=== PATIENT | female | born 1985 | race Caucasian/White ===

== ENCOUNTER 2019-11-07 06:40 | Emergency (ER) | payer OTHER, SELFPAY ==
--- NOTE | ~2019-11-07 | CT_ITS ---
EXAMINATION: CT abdomen pelvis w con DATE: 11/07/2019 08:24 INDICATION: Abdomen pain. TECHNIQUE: Computed tomography (CT) of the abdomen and pelvis was performed with 100 cc Omnipaque 350 intravenous contrast. The dose-length product was 203.15 mGy-cm. Automated exposure control and iter ative reconstruction technique were employed. COMPARISON: None. FINDINGS: Lung bases unremarkable. Right-sided heart. Right-sided aortic arch. Small hiatal hernia. T here is a left-sided liver with right-sided spleen. The stomach is on the right. Findings compatible with situs inversus. There is right renal cortical scarring. The left kidney is not identified. The a drenal glands are unremarkable. Nonobstructive bowel gas pattern. The bowel is reversed. There is a l ipoma involving the right psoas muscle. No free air or free fluid. No significant lymphadenopathy. IMPRESSION: 1. Situs inversus totalis. 2: No acute abdominal abnormality. 3: Irregular cortical scarring of the right kidney. No hydronephrosis or solid renal mass identified. The left kidney is not identified, possibly developmentally or surgically absent. Reviewed, dictated and finalized at location A. IMPRESSION: 1. Situs inversus totalis. 2: No acute abdominal abnormality. 3: Irregular cortical scarring of the right kidney. No hydronephrosis or solid renal mass identified. The left kidney is not identified, possibly developmenta lly or surgically absent.
[2019-11-07 06:44] VITALS: BP 185/98; PULSE 88; RESP 17; TEMP 37.1; O2SAT 97
--- NOTE | 2019-11-07 06:51 | ED.ABDPAIN ---
HPI - Abdominal Pain General Chief Complaint: Abdominal Pain Stated Complaint: epigastric pain Time Seen by Provider: 11/07/19 06:45 Source: RN notes reviewed History of Present Illness HPI narrative: Patient presents emergency department from home for epigastric abdominal pain. Patient states symptoms began 2 days ago. Pain is located the epigastric region does not radiate. Patient states the pain has never fully resolved but will come and go. Associated with nausea. Patient denies any fevers or chills chest pain shortness of breath diarrhea or any other symptoms. Patient states she has a history of GERD. States pain is progressively worsening. Denies any other symptoms at this time Related Data Allergies Allergy/AdvReac Type Severity Reaction Status Date / Time amoxicillin Allergy Unknown Nausea Verified 11/05/18 14:30 Review of Systems Review of Systems: Narrative: Gen.: Denies fevers or chills ENT: Denies congestion Respiratory: Denies shortness of breath or cough CV: Denies chest pain or palpitations GI: See HPI denies burning, urgency, frequency or hematuria Musculoskeletal: Denies back pain or muscle pain Neuro: Denies numbness, tingling, weakness or focal weakness Skin: Denies rash Except as documented, all other systems reviewed and negative [facility] Past Medical History Medical History (Updated 11/07/19 @ 13:16 by Will Newton DO) Abnormal Papanicolaou smear of cervix with positive human papilloma virus (HPV) test (~02/16/17) referred to Dr Giordano GERD (gastroesophageal reflux disease) Social History Social History (Updated 11/07/19 @ 06:52 by Will Newton DO) Smoking packs per day: 0.5 Smoking cigarettes per day: 10.0 Alcohol intake: never Exam Narrative: Exam Narrative: APPEARANCE: No acute distress, nontoxic, resting in bed HEENT: Normocephalic, atraumatic, OMM RESPIRATORY: No respiratory distress, clear to auscultation bilaterally with no rhonchi wheezing or rales CARDIOVASCULAR: RRR s murmur ABDOMINAL: Soft, nondistended, tender palpation epigastric and left upper quadrant, no tenderness right upper quadrant, right lower quadrant left lower quadrant, no rebound or guarding small ventral hernia and superior abdomen that is soft and reducible but tender to palpation Rectal: No hemorrhoids or fissures, no active bleeding, small bowel soft brown stool that is Hemoccult negative MUSCULOSKELETAl: Moves all extremities. No clubbing, cyanosis or edema. NEURO: Awake and alert. Following commands, speech normal, no focal deficits SKIN:: Warm, dry. Normal Color PSYCHIATRIC: Normal affect/mood Course Course Emergency Course: I did discuss with patient her anemia. She denies have any dark stools or any blood in stool Patient states that they are feeling much better at this time. . Repeat abdominal exam shows the patient's abdomen to be soft with no surgical abdomen present. Discussed with patient results of workup and diagnosis. Discussed need for follow-up with primary care physician, reasons to return to the emergency department in proper use of medication. Patient understands and agrees to current treatment plan Vital Signs Vital signs: Vital Signs Temperature 98.7 F 11/07/19 06:44 Pulse Rate 88 11/07/19 06:44 Respiratory Rate 17 11/07/19 06:44 Blood Pressure 185/98 H 11/07/19 06:44 Pulse Oximetry 97 11/07/19 06:44 Temperature 98.7 F 11/07/19 06:44 Pulse Rate 88 11/07/19 06:44 Respiratory Rate 17 11/07/19 06:44 Blood Pressure 185/98 H 11/07/19 06:44 Pulse Oximetry 97 11/07/19 06:44 MDM - Abdominal Pain Lab Data Result diagrams: 11/07/19 06:54 11/07/19 06:54 Labs: Lab Results 11/07/19 11/07/19 11/07/19 Range/Units 06:54 06:54 07:32 WBC 9.3 (4.5-10.0) K/mm3 RBC 3.97 L (4.2-5.4) M/mm3 Hgb 10.1 L (12.0-15.0) g/dL Hct 32.4 L (37.0-47.0) % MCV 81.6 (80-100) fl MCH 25.4 L (26-34) p
[2019-11-07 07:03] LABS: Basophils Absolute Auto 0.1 K/mm3 (0.0-0.1); Basophils Percent Auto 0.6 % (0.2-1.2); Eosinophils Absolute Auto 0.2 K/mm3 (0-0.3); Eosinophils Percent Auto 2.2 % (0-4.4); Hematocrit 32.4 % (37.0-47.0); Hemoglobin 10.1 g/dL (12.0-15.0); Immature Granulocyte Absolute 0.02 K/mm3 (0.00-0.031); Immature Granulocyte Percent A 0.2 % (0-0.5); Lymphocytes Absolute Auto 3.71 K/mm3 (0.9-3.2); Mean Corpuscular HGB Conc 31.2 g/dl (32-36); Mean Corpuscular Hemoglobin 25.4 pg (26-34); Mean Corpuscular Volume 81.6 fl (80-100); Mean Platelet Volume 9.3 fl (7.4-10.4); Monocytes Absolute Auto 0.8 K/mm3 (0.1-0.6); Monocytes Percent Auto 8.4 % (2.6-8.5); Neutrophils Absolute Auto 4.5 K/mm3 (1.3-6.7); Neutrophils Percent Auto 48.6 % (45.5-73.1); Platelet Count Result 485 k/mm3 (150-375); Red Blood Count 3.97 M/mm3 (4.2-5.4); Red Cell Distribution Width 16.8 % (11.5-14.5); White Blood Count 9.3 K/mm3 (4.5-10.0)
[2019-11-07 07:28] LABS: Alanine Aminotransferase 12 U/L (4-35); Albumin Level 3.8 g/dL (3.5-5.1); Alkaline Phosphatase 90 U/L (38-126); Aspartate Amino Transferase 24 U/L (14-36); Bilirubin,Total 0.1 mg/dL (0.2-1.3); Blood Urea Nitrogen 19 mg/dL (7-17); Calcium 8.3 mg/dL (8.4-10.2); Carbon Dioxide 21 mmol/L (22-30); Chloride 106 mmol/L (98-107); Estimated CRCL calculation 44 ml/min; Estimated Glomerular Filt Rate 51; Glucose 104 mg/dL (65-105); Lipase 209 U/L (23-300); Potassium 4.8 mmol/L (3.4-5.0); Sodium 136 mmol/L (137-145)
[2019-11-07 07:40] LABS: Add Urine Microscopic? YES; Appearance Urine Clear (Clear); Bacteria Urine Trace /hpf; Bilirubin Urine Negative (Negative); Blood Urine Negative (Negative); Color Urine Yellow (Yellow); Glucose Urine UA Negative (Negative); Ketones Urine Negative (Negative); Leukocyte Esterase Ur Negative LEU/UL (Negative); Mucus Urine Rare /lpf; Nitrate Urine Negative (Negative); Protein Urine 2+ mg/dL (Negative); RBC Urine 0-2 /hpf (0-2); Specific Grav Ur 1.018 (1.001-1.035); Squamous Epithelial Cell Urine Moderate /hpf (Few); Urobilinogen Urine Negative mg/dL (<2.0); WBC Urine 0-3 /hpf
[2019-11-07] MEDS: LACTATED RINGERS 1,000 ML 999 ML IV CONT (07:48)
[2019-11-07] MEDS: MORPHINE SULFATE 4 MG/ML INJ IV PUSH (07:48)
--- NOTE | 2019-11-07 08:45 | ECG_ITS ---
Measurements Intervals [place] Rate: 85 P: 261 ME: 155 QRS: 163 QRSD: 71 T: 185 QT: 341 QTc: 407 Interpretive Statements ECTOPIC ATRIAL RHYTHM POOR R WAVE PROGRESSION, CONSIDER ANTEROLATERAL INFARCT HIGH LATERAL INFARCT- AGE INDETERMINATE BORDERLINE T WAVE ABNORMALITY- ANT/INF LEADS BASELINE ARTIFACT- V5-V6 ABNORMAL ECG Electronically Signed On 11-07-2019 10:43:40 CDT by Dilan Ambrose D.O.
[2019-11-07 11:50] VITALS: BP 188/94; PULSE 75; RESP 16; O2SAT 99
[2019-11-07 13:45] VITALS: BP 177/97; PULSE 73; RESP 16; O2SAT 97
== END 2019-11-07 13:50 | disposition home or self-care (01) ==
PROVIDERS: Emergency Provider Emergency Medicine
DX: K43.9 Ventral hernia without obstruction or gangrene (principal); K21.9 Gastro-esophageal reflux disease without esophagitis; F17.210 Nicotine dependence, cigarettes, uncomplicated; Q89.3 Situs inversus; R94.31 Abnormal electrocardiogram [ECG] [EKG]
CPT/HCPCS: 36415; 74177; 80053; 81001; 81025; 83690; 85025; 93005; 96361; 96374; 96375; 99284; A9270; J0131; J2270; J7120; Q9967

== ENCOUNTER 2019-12-28 10:49 | Emergency (ER) | payer OTHER, SELFPAY ==
--- NOTE | ~2019-12-28 | CT_ITS ---
EXAMINATION: CT abdomen pelvis w con DATE: 12/28/2019 12:56 INDICATION: Epigastric abdominal pain. Vomiting. TECHNIQUE: Computed tomography (CT) of the abdomen and pelvis was performed with 100 mL Omnipaque 350 intravenous contrast. Automated exposure control and iterative reconstruction technique were employe d. The dose-length product was 190.49 mGy-cm. COMPARISON: CT abdomen and pelvis 11/07/2019 FINDINGS: Situs inversus is noted. The visualized portions of the lung bases demonstrate mild atelect asis on the left. No pleural effusion. The heart size is normal. No pericardial effusion. There is he terogeneous attenuation of the inferior liver without change. The gallbladder and spleen are normal. There is a 7 mm cystic lesion in the tail of the pancreas with decrease in size from 18 mm, likely a pseudocyst. The adrenal glands are normal. There is multifocal volume loss of right kidney. Left kidn ey is absent. There are dilated loops of jejunum without focal transition point. The appendix is not visualized. There are no pathologically enlarged lymph nodes. There is trace pelvic ascites, likely p hysiologic. Focal fat in the right erector spinae muscle may be an intramuscular lipoma or chronic at formerly [facility]. There is mild lumbar spondylosis. IMPRESSION: 1. Dilated loops of jejunum without focal transition point, likely adynamic ileus. 2. Unchanged heterogeneous attenuation of the inferior liver, likely scarring. 3. Solitary right kidney with unchanged mild atrophy. 4. Situs inversus. 5. 7 mm cystic lesion in the tail of the pancreas with interval improvement, likely a pseudocyst. Reviewed, dictated and finalized at location A. IMPRESSION: 1. Dilated loops of jejunum without focal transition point, likely adynamic ile us. 2. Unchanged heterogeneous attenuation of the inferior liver, likely scarring. 3. Solitary right kidney with unchanged mild atrophy. 4. Situs inversus. 5. 7 mm cystic lesion in the tail of the pancreas with interval improvement, li shellie a pseudocyst.
--- NOTE | ~2019-12-28 | XR_ITS ---
EXAMINATION: XR sm bowel follow through WS EXAM DATE: 12/28/2019 16:34 INDICATION: History of hiatal hernia. Situs inversus. Adynamic ileus, epigastric pain and vomiting. TECHNIQUE: Pharmacy Cashier radiograph was acquired. Small bowel series was performed with water-soluble solut ion. Spot images of the terminal ileum were acquired. The DAP for this procedure was 0.5 Gycm2. Cor relation is made to CT abdomen earlier same date. FINDINGS: Liver is on the left side of the abdomen. The Duodenal sweep, stomach position consistent w ith situs in versus. Ileal and jejunal fold patterns are normal. There is no small bowel wall thicke dandre or mass effect displacing small bowel. There are no intraluminal filling defects identified. T here is no small bowel dilation. Terminal ileum is normal in appearance. Contrast reached the colon between 1.5 in 2 hours, with the cecum located in the left side of the abdomen. IMPRESSION: Situs inverses. Otherwise unremarkable small bowel exam. Reviewed, dictated and finalized at location A.
[2019-12-28 10:55] VITALS: BP 177/100; PULSE 97; RESP 16; TEMP 36.8; O2SAT 100
[2019-12-28 11:37] LABS: Basophils Absolute Auto 0.1 K/mm3 (0.0-0.1); Basophils Percent Auto 0.5 % (0.2-1.2); Eosinophils Absolute Auto 0.1 K/mm3 (0-0.3); Eosinophils Percent Auto 0.8 % (0-4.4); Hematocrit 34.2 % (37.0-47.0); Immature Granulocyte Absolute 0.04 K/mm3 (0.00-0.031); Immature Granulocyte Percent A 0.3 % (0-0.5); Lymphocytes Absolute Auto 3.15 K/mm3 (0.9-3.2); Lymphocytes Percent Auto 26.6 % (18.3-44.2); Mean Corpuscular HGB Conc 32.2 g/dl (32-36); Mean Corpuscular Hemoglobin 25.8 pg (26-34); Mean Corpuscular Volume 80.1 fl (80-100); Monocytes Absolute Auto 0.6 K/mm3 (0.1-0.6); Monocytes Percent Auto 5.1 % (2.6-8.5); Neutrophils Absolute Auto 7.9 K/mm3 (1.3-6.7); Neutrophils Percent Auto 66.7 % (45.5-73.1); Platelet Count Result 436 k/mm3 (150-375); Red Blood Count 4.27 M/mm3 (4.2-5.4); Red Cell Distribution Width 16.9 % (11.5-14.5); White Blood Count 11.9 K/mm3 (4.5-10.0)
[2019-12-28 11:44] LABS: Add Urine Microscopic? YES; Appearance Urine Clear (Clear); Bacteria Urine Trace /hpf; Bilirubin Urine Negative (Negative); Blood Urine Negative (Negative); Color Urine Yellow (Yellow); Glucose Urine UA Negative (Negative); Ketones Urine Negative (Negative); Leukocyte Esterase Ur Negative LEU/UL (Negative); Mucus Urine Rare /lpf; Nitrate Urine Negative (Negative); Protein Urine 3+ mg/dL (Negative); Specific Grav Ur 1.025 (1.001-1.035); Squamous Epithelial Cell Urine Rare /hpf (Few); WBC Urine 0-3 /hpf
--- NOTE | 2019-12-28 11:48 | ED.ABDPAIN ---
HPI - Abdominal Pain General Chief Complaint: Abdominal Pain Stated Complaint: Abd Pain Time Seen by Provider: 12/28/19 11:09 Source: patient Mode of arrival: ambulatory Limitations: no limitations History of Present Illness HPI narrative: This is a 34 year old female that presents to the ER for abdominal pain x 2 days. Reports history of ventral hernia and that she has been having problems with it over the last couple months. Reports she was supposed to have surgery last month, but this was cancelled due to pandemic. Reports worsening pain over the last couple days with nausea and vomiting. Denies fever, chest pain, shortness of breath, diarrhea, or dysuria. Related Data Allergies Allergy/AdvReac Type Severity Reaction Status Date / Time amoxicillin Allergy Unknown Nausea Verified 11/14/19 09:41 Review of Systems Review of Systems: Narrative: CONSTITUTIONAL: Denies fever CARDIOVASCULAR: Denies chest pain RESPIRATORY: Denies dyspnea. GASTROINTESTINAL: Reports abdominal pain, nausea, vomiting. Denies diarrhea. GENITOURINARY: Denies dysuria or hematuria. All systems reviewed & are unremarkable except as noted in HPI and below PMFSH Past Medical History Medical History (Updated 12/28/19 @ 16:55 by Jayna Donahue PA-C) Abnormal Papanicolaou smear of cervix with positive human papilloma virus (HPV) test (~02/16/17) referred to Dr Giordano GERD (gastroesophageal reflux disease) Raynaud disease Unspecified asthma Surgical History Surgical History (Updated 11/14/19 @ 09:46 by Isabell Esparza) S/P wisdom tooth extraction Social History Social History (Updated 11/07/19 @ 06:52 by Will Newton, ) Smoking packs per day: 0.5 Smoking cigarettes per day: 10.0 Alcohol intake: never Exam Narrative: Exam Narrative: GENERAL: Well-appearing, well-nourished, and in no acute distress. HEAD: Normocephalic, atraumatic. EYES: EOMI. CHEST: Clear to auscultation. No respiratory distress. No wheezes rales or rhonchi HEART: Regular rate and rhythm. No murmur heard. Normal peripheral pulses. ABDOMEN: Soft, nondistended, normal active bowel sounds. Mild tenderness to palpation of the epigastrium and LUQ, without guarding. Small supraumbilical ventral hernia EXTREMITIES: Normal range of motion. No edema. SKIN: Warm, dry, no rash. NEURO: No focal deficits. Alert and oriented x3. PSYCH: Normal mood and affect Course Consultations Consultation #1: Spoke with Dr. Guardado about patient and work-up. Reports if small bowel follow-through looks okay that she can go home with strict criteria for return Date: 12/28/19 Time: 16:51 Vital Signs Vital signs: Vital Signs Temperature 98.3 F 12/28/19 10:55 Pulse Rate 97 12/28/19 10:55 Respiratory Rate 16 12/28/19 10:55 Blood Pressure 177/100 H 12/28/19 10:55 Pulse Oximetry 100 12/28/19 10:55 Temperature 98.3 F 12/28/19 10:55 Pulse Rate 71 12/28/19 14:30 Respiratory Rate 18 12/28/19 14:30 Blood Pressure 141/78 H 12/28/19 14:30 Pulse Oximetry 97 12/28/19 14:30 MDM - Abdominal Pain MDM Narrative Medical decision making narrative: Patient presents the emergency department for abdominal pain, nausea and vomiting over the last couple of days. She is afebrile and nontoxic-appearing. Vitals are normal other than elevation in blood pressure. Patient did not think she took her blood pressure medication last night. She was given labetalol with improvement. CBC with mild leukocytosis to 11.9. Normocytic anemia which seems to be around patient's baseline. Metabolic panel also appears to be around patient's baseline. UA without evidence of infection. CT abdomen pelvis shows adynamic ileus. Spoke with Dr. Guardado about patient and work-up. Reports if she is not vomiting and feels okay we could get a small bowel follow-through and if normal she could go home. Small bowel follow-through study is unremarkable. Patient updated on case findings. She has had no fur
[2019-12-28 11:50] LABS: Alanine Aminotransferase 12 U/L (4-35); Albumin Level 3.9 g/dL (3.5-5.1); Alkaline Phosphatase 90 U/L (38-126); Aspartate Amino Transferase 19 U/L (14-36); Bilirubin,Total 0.2 mg/dL (0.2-1.3); Blood Urea Nitrogen 16 mg/dL (7-17); Calcium 8.8 mg/dL (8.4-10.2); Carbon Dioxide 24 mmol/L (22-30); Chloride 103 mmol/L (98-107); Estimated CRCL calculation 47 ml/min; Estimated Glomerular Filt Rate 56; Glucose 106 mg/dL (65-105); Lipase 182 U/L (23-300); Potassium 4.3 mmol/L (3.4-5.0); Sodium 135 mmol/L (137-145)
[2019-12-28] MEDS: MORPHINE SULFATE 4 MG/ML INJ IV PUSH (12:06)
[2019-12-28] MEDS: ONDANSETRON INJ 4 MG/2 ML VIAL IV PUSH (12:06)
[2019-12-28] MEDS: LABETALOL HCL INJ 100 MG/20 ML VIAL 20 MG IV PUSH (12:06)
[2019-12-28] MEDS: SODIUM CHLORIDE 0.9% IV 500 ML 999 ML IV CONT ×2 (12:06→16:15)
[2019-12-28 12:08] VITALS: BP 160/92; PULSE 79; RESP 22; O2SAT 98
[2019-12-28 13:26] VITALS: BP 142/81; PULSE 68; RESP 14; O2SAT 96
[2019-12-28 14:30] VITALS: BP 141/78; PULSE 71; RESP 18; O2SAT 97
[2019-12-28] MEDS: METOCLOPRAMIDE HCL INJ 10 MG/2 ML VIAL IV PUSH (16:15)
[2019-12-28] MEDS: KETOROLAC 30 MG/ML VIAL (*BKC) IV PUSH (16:20)
[2019-12-28 17:03] VITALS: BP 178/98; PULSE 104; RESP 20; O2SAT 97
== END 2019-12-28 17:12 | disposition home or self-care (01) ==
PROVIDERS: Emergency Provider Emergency Medicine; PCP Family Medicine
DX: K21.9 Gastro-esophageal reflux disease without esophagitis (principal); I73.00 Raynaud's syndrome without gangrene; J45.909 Unspecified asthma, uncomplicated
CPT/HCPCS: 36415; 74177; 74250; 80053; 81001; 81025; 83690; 85025; 96361; 96365; 96375; 99284; J0131; J1200; J1885; J2270; J2405; J2765; J7040; Q9967

== ENCOUNTER 2020-01-09 05:37 | Outpatient (CLI) | payer OTHER, SELFPAY ==
[2020-01-09 15:31] LABS: SARS-CoV-2 RNA PCR Negative
== END 2020-01-09 05:38 | disposition home or self-care (01) ==
LOC: ANHCOVIDDT 05:38
PROVIDERS: PCP Family Medicine; Visit Provider Surgery
DX: Z01.818 Encounter for other preprocedural examination (principal); Z11.59 Encounter for screening for other viral diseases
CPT/HCPCS: 87635; C9803; U0003

== ENCOUNTER 2020-01-11 00:30 | Day surgery (SDC) | payer OTHER, SELFPAY ==
[2020-01-06 14:18] VITALS: BMI 22.3
[2020-01-11] MEDS: LACTATED RINGERS 1,000 ML 30 ML IV CONT (06:20)
[2020-01-11 06:28] VITALS: BP 159/80; PULSE 102; RESP 16; TEMP 36.9; O2SAT 100
--- NOTE | 2020-01-11 06:51 | WPDHPUPDATE1 ---
History and Physical Update Update Date/Time: 01/11/20 06:51 History and Physical has been reviewed, including an updated exam of the patient. There are NO changes in the patient's condition. Risks, benefits, and alternatives have been discussed and questions answered. Patient agrees to proceed with procedure.
--- NOTE | 2020-01-11 06:52 | WPDANESEPPF ---
Anes - Initial Pre Proc Eval Procedure: Operation Date: 01/11/20 07:30 Proposed Procedures p Repair Ventral Hernia with Mesh - Dale Guardado MD Date/Time: 01/11/20 06:52 Surgeon: Dale Guardado MD Pre Op Diagnosis: Ventral Hernia Patient Data Age: 34 Gender: F Height: 5 ft 1 in Weight: 50.7 kg Last Vital Signs Temp 36.9 C 01/11/20 06:28 Pulse 102 H 01/11/20 06:28 Resp 16 01/11/20 06:28 BP 159/80 H 01/11/20 06:28 Pulse Ox 100 01/11/20 06:28 Allergies Allergy/AdvReac Type Severity Reaction Status Date / Time amoxicillin AdvReac Mild Nausea Verified 01/11/20 05:59 Home Medications Medication Instructions Recorded Confirmed Type omeprazole 20 mg capsule,delayed 20 mg PO BID #90 cap 08/25/19 01/11/20 Rx release desog-e.estradiol/e.estradiol 0.15 1 tablet PO DAILY #28 tablet 09/13/19 01/11/20 Rx mg-0.02 mg(21)/e.estrad 0.01 mg(5) tablet hydrochlorothiazide 12.5 mg tablet 12.5 mg PO DAILY #30 tablet 11/28/19 01/11/20 Rx ondansetron 4 mg PO Q8H PRN #14 tablet 12/28/19 01/11/20 Rx levalbuterol tartrate 2 inhalation INHALATION Q6H PRN 01/06/20 01/11/20 History Patient hx anesthesia problems: none Family hx anesthesia problems: none PMFSH Past Medical History Medical History Abnormal Papanicolaou smear of cervix with positive human papilloma virus (HPV) test (~02/16/17) referred to Dr Giordano GERD (gastroesophageal reflux disease) History of asthma Klippel-Feil syndrome congenital , 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 Raynaud disease Unspecified asthma Surgical History Surgical History S/P wisdom tooth extraction Family History Family History Father Family history of blood dyscrasia Hypertension Family history of hypercholesterolemia Family history of cardiovascular disease Family history of coronary artery disease Mother Family history of hypercholesterolemia Other Cerebrovascular accident Diabetes mellitus Family history of malignant neoplasm Social History Social History Smoking packs per day: 0.5 Smoking cigarettes per day: 10.0 Alcohol intake: never Anes - Eval Final PreProcedure Day of Procedure 01/11/20 06:52 Patient weight: normal Heart: regular rate and rhythm Lungs: decreased breath sounds Airway: Mallampati scale class 1 Neurological: alert and oriented Last oral intake: >/= 8 hours ASA classification: III Emergent: no Anesthetic plan: proceed Anesthesia type and monitoring: general GIVS and standard monitoring Informed Consent: The patient's anesthetic plan and its attendant risks and benefits were discussed with the patient/family/POA. Questions were solicited and answers provided to the satisfaction of the patient/family/POA.
[2020-01-11] MEDS: ceFAZolin 2 GM/D5W 50 ML 2 GM/50 ML BAG IVPB (07:18)
[2020-01-11 08:12] VITALS: BP 123/69; PULSE 72; RESP 12; O2SAT 94
[2020-01-11 08:30] VITALS: BP 149/92; PULSE 79; RESP 14; O2SAT 96
--- NOTE | 2020-01-11 08:33 | P.OP_ITS ---
Procedure Note - Detailed Date of procedure: 01/11/20 Pre-op diagnosis: Ventral Hernia Ventral hernia Post-op diagnosis: same Procedure performed: Repair primary ventral hernia with 6.6 cm Parietex underlay mesh Description of procedure: The patient was checked in the preoperative holding area. She was then taken back to surgery. The abdomen was prepped and draped. The proposed transversely oriented incision was marked on the skin. Incision was about 3 in cephalad of the umbilicus. Local was infiltrated in the area of the anticipated incision and in the deeper subcutaneous tissues. Incision was made and dissection was carried down to the hernia. I dissected around the hernia sac and then dissected down to the fascia. Additional local was infiltrated into the fascia and the neck of the hernia. The hernia sac was then excised and discarded. The omentum that was protruding through the defect was placed back in the abdomen. I placed a finger in the abdomen and checked the undersurface of the abdominal wall circumferentially. It was clear and there were no additional hernias. I undermined some of the subcutaneous in the cranial and caudal direction above and below the hernia. A 6.6 cm Parietex mesh was chosen. It was placed in the defect and then position symmetrically. Transfascial sutures were then placed to secure the mesh to the anterior abdominal wall. These sutures were placed in the cranial and caudal midline. There were placed in such a fashion as to advance the edges of the hernia defect towards 1 another so there would be no tension on the repair. Once tied down, these sutures had the desired effect. I then placed right and left lateral transfascial sutures. The transfascial sutures were 0 Ethibond. I then closed the defect with [id number] mattress sutures of 0 Ethibond. The rest of the local anesthetic was infiltrated throughout the area of the repair. The wound was closed in layers with interrupted 3 0 Vicryl suture for the deeper subcutaneous. Subcuticular interrupted 4 O Vicryl skin sutures were placed. A running 4 0 Monocryl skin suture was placed. The wound was dressed with Exofin surgical adhesive. The patient was awakened and taken to recovery in good condition. Sponge and needle counts were correct x2. Anesthesia: MAC and local (0.5% Marcaine with Exparel) Surgeon: Dale Guardado MD Electrician'S Helper: Mady STAPLETON Estimated blood loss (mL): 5 Drains: No Packing: No Pathology: none sent Complications: None Condition: stable Disposition: same day Findings: 1.8 cm defect
[2020-01-11 09:00] VITALS: BP 169/92; PULSE 72; RESP 14
== END 2020-01-11 09:18 | disposition home or self-care (01) ==
PROVIDERS: PCP Family Medicine; Visit Provider Surgery
PROC: 0WQF0ZZ Repair Abdominal Wall, Open Approach (ICD-10-PCS; CPT 49560; principal; 2020-01-11 07:30)
DX: K43.9 Ventral hernia without obstruction or gangrene (principal); J45.909 Unspecified asthma, uncomplicated; K21.9 Gastro-esophageal reflux disease without esophagitis; Q76.1 Klippel-Feil syndrome; Q89.3 Situs inversus; I73.00 Raynaud's syndrome without gangrene; F17.210 Nicotine dependence, cigarettes, uncomplicated
CPT/HCPCS: 49560; 49568; C1781; C9290; J0690; J2250; J2704; J3010; J7120

== ENCOUNTER 2022-10-01 14:14 | Outpatient (CLI) | payer BC, SELFPAY ==
[2022-10-01 16:54] LABS: Kit Draw Collected
== END 2022-10-01 14:15 | disposition home or self-care (01) ==
LOC: ANHGOSHLAB 14:16
PROVIDERS: PCP Family Medicine; Visit Provider Family Medicine
DX: K90.0 Celiac disease (principal); R76.0 Raised antibody titer
CPT/HCPCS: 36415

== ENCOUNTER 2022-11-17 07:57 | Emergency (ER) | payer BC, SELFPAY ==
[2022-11-17 08:03] VITALS: BP 150/92; PULSE 92; RESP 18; TEMP 36.5; O2SAT 99
--- NOTE | 2022-11-17 08:24 | ECG_ITS ---
Measurements Intervals [place] Rate: 93 P: -33 [place]: 161 QRS: 155 QRSD: 84 T: 152 QT: 348 QTc: 433 Interpretive Statements ECTOPIC ATRIAL RHYTHM HIGH LATERAL INFARCT, AGE INDETERMINATE BASELINE ARTIFACT- I, II, III, AVL, AVF, V1 ABNORMAL ECG COMPARED TO ECG 11/07/2019 08:59:39 NO SIGNIFICANT CHANGES Electronically Signed On 11-17-2022 8:57:31 CDT by Dilan Ambrose D.O.
--- NOTE | 2022-11-17 08:31 | ED.GENADULT ---
HPI - General Adult General Chief complaint: Unspecified Stated complaint: chills, weakness, shaking Time Seen by Provider: 11/17/22 08:21 History of Present Illness HPI narrative: Patient was at work today when she suddenly started feeling chills, weak, and tremulous. She followed her face with flushing. Had a similar episode about 3 years ago, when she was also told she had high blood pressure, had been placed on BP medications but then everything had normalized and she had been taking off of her medicines. Related Data Allergies Allergy/AdvReac Type Severity Reaction Status Date / Time amoxicillin AdvReac Mild Nausea Verified 10/27/22 13:32 Review of Systems Review of Systems: CONST: Feeling warm/chills. HEENT: Flushing C/V: No chest pain RESP: No cough GI: Reports vague nausea : No dysuria. M/S: No joint pain. 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 Mild intermittent asthma Nicotine dependence Raynaud disease Unspecified asthma Urticaria Ventral hernia ct 2020 Surgical History Surgical History H/O ventral hernia repair 5..20 Repair primary ventral hernia with 6.6 cm Parietex underlay mesh S/P wisdom tooth extraction Family History Family History Father Family history of blood dyscrasia Hypertension Family history of hypercholesterolemia Family history of cardiovascular disease Family history of coronary artery disease Mother Family history of hypercholesterolemia Other Cerebrovascular accident Diabetes mellitus Family history of malignant neoplasm Social History Social History Smoking packs per day: 0.5 Smoking cigarettes per day: 10.0 Years smoked: 20 Smoking pack-years: 10.00 Smoking status: Former smoker Tobacco type: cigarettes Smoking end date: 01/09/21 Alcohol intake: current Substance use type: does not use Lack of Transportation: No Lack of Food: Never True Current Housing: I Have Housing Concerned About Future Housing: No Difficulty Paying Gas/Electric Bills: No Difficulty Paying for Meds: No Currently Unemployed: No Education: Associate Degree Difficulty w/ Childcare or Family Care: No Living arrangements: with family Gender identity (if verbalized by the patient): Female Sexual Orientation (if Verbalized by the Patient): Straight or Heterosexual Exam Narrative: EXAMINATION OF ORGAN SYSTEMS/BODY AREAS: Constitutional: Vital signs per nursing GENERAL:[No acute distress, non-toxic appearing.] HEAD: Normal with no signs of head trauma. EYES: EOMI, conjunctiva normal ENT: Face/ears somewhat red which per her partner is not normal LUNGS: Nonlabored breathing. HEART: [Regular rate and rhythm] ABD: [Soft], [nontender to palpation] EXT: Normal range of motion SKIN: [No rashes or lesions.] NEURO: [Alert and oriented x 3. No gross focal sensory or strength deficits.] PSYCH: Normal affect Course Vital Signs Vital signs: Vital Signs Temperature 97.7 F 11/17/22 08:03 Pulse Rate 92 11/17/22 08:03 Respiratory Rate 18 11/17/22 08:03 Blood Pressure 150/92 H 11/17/22 08:03 Pulse Oximetry 99 11/17/22 08:03 Oxygen Delivery Room Air 11/17/22 08:03 Temperature 97.7 F 11/17/22 08:03 Pulse Rate 92 11/17/22 08:03 Respiratory Rate 18 11/17/22 08:03
[2022-11-17 08:34] VITALS: BP 124/108
[2022-11-17 09:00] LABS: Basophils Percent Auto 0.2 % (0.2-1.2); Eosinophils Absolute Auto 0.1 K/mm3 (0-0.3); Eosinophils Percent Auto 0.8 % (0-4.4); Hematocrit 38.2 % (37.0-47.0); Hemoglobin 12.9 g/dL (12.0-15.0); Immature Granulocyte Absolute 0.04 K/mm3 (0.00-0.031); Immature Granulocyte Percent A 0.3 % (0-0.5); Lymphocytes Percent Auto 20.5 % (18.3-44.2); Mean Corpuscular HGB Conc 33.8 g/dl (32-36); Mean Corpuscular Hemoglobin 29.1 pg (26-34); Mean Platelet Volume 9.4 fl (7.4-10.4); Monocytes Absolute Auto 0.8 K/mm3 (0.1-0.6); Monocytes Percent Auto 6.4 % (2.6-8.5); Neutrophils Absolute Auto 8.4 K/mm3 (1.3-6.7); Neutrophils Percent Auto 71.8 % (45.5-73.1); Platelet Count Result 365 k/mm3 (150-375); Red Blood Count 4.44 M/mm3 (4.2-5.4); Red Cell Distribution Width 13.4 % (11.5-14.5); White Blood Count 11.7 K/mm3 (4.5-10.0)
[2022-11-17 09:01] VITALS: BP 129/85
[2022-11-17 09:13] LABS: Alanine Aminotransferase 21 U/L (6-35); Albumin Level 4.5 g/dL (3.5-5.1); Alkaline Phosphatase 64 U/L (38-126); Anion Gap 11 mmol/L (8-16); Aspartate Amino Transferase 27 U/L (14-36); Bilirubin,Total 0.5 mg/dL (0.2-1.3); Blood Urea Nitrogen 20 mg/dL (7-17); Carbon Dioxide 19 mmol/L (22-30); Chloride 106 mmol/L (98-107); Estimated CRCL calculation 42 ml/min; Estimated Glomerular Filt Rate 42; Glucose 142 mg/dL (65-110); Potassium 4.3 mmol/L (3.4-5.0); Sodium 136 mmol/L (137-145)
== END 2022-11-17 11:07 | disposition home or self-care (01) ==
PROVIDERS: Emergency Provider Emergency Medicine; PCP Family Medicine
DX: R53.1 Weakness (principal); K21.9 Gastro-esophageal reflux disease without esophagitis; J45.909 Unspecified asthma, uncomplicated; I73.00 Raynaud's syndrome without gangrene
CPT/HCPCS: 36415; 80053; 84443; 85025; 93005; 99283

== ENCOUNTER 2023-02-16 13:42 | Outpatient (CLI) | payer BC, SELFPAY ==
--- NOTE | ~2023-02-16 | US_ITS ---
EXAMINATION: US renal BI DATE: 02/16/2023 13:59 INDICATION: N18.31 - Chronic kidney disease, stage 3a TECHNIQUE: Multiple grayscale and Doppler ultrasound images of the kidneys were obtained. COMPARISON: CT abdomen and pelvis 12/28/2019. FINDINGS: The right kidney measures 11.4 x 4.2 x 5.5 cm. The left kidney is not visualized The right kidney dem onstrates normal parenchymal echogenicity. There is mild right. The bladder is normal. A single urete ral jet is noted. IMPRESSION: Renal cortical atrophy, medical renal disease, and mild hydronephrosis on the right. Absent left kidn ey. Reviewed, dictated and finalized at location K. IMPRESSION: Renal cortical atrophy, medical renal disease, and mild hydronephrosis on the r ight. Absent left kidney.
== END 2023-02-16 13:43 ==
LOC: GOSHIMG 13:44
PROVIDERS: PCP Family Medicine; Visit Provider Internal Medicine Nephrology
DX: N18.31 Chronic kidney disease, stage 3a (principal); N26.1 Atrophy of kidney (terminal); N13.30 Unspecified hydronephrosis; Z90.5 Acquired absence of kidney
CPT/HCPCS: 76775

== ENCOUNTER 2023-02-16 13:57 | Outpatient (CLI) | payer BC, SELFPAY ==
[2023-02-16 15:15] LABS: Kit Draw Collected
== END 2023-02-16 13:58 | disposition home or self-care (01) ==
LOC: ANHGOSHLAB 14:00
PROVIDERS: PCP Family Medicine; Visit Provider Internal Medicine Nephrology
DX: N25.81 Secondary hyperparathyroidism of renal origin (principal); N18.31 Chronic kidney disease, stage 3a; E55.9 Vitamin D deficiency, unspecified
CPT/HCPCS: 36415

== ENCOUNTER 2023-07-18 07:46 | Outpatient (CLI) | payer BC, SELFPAY ==
[2023-07-18 08:49] LABS: Alanine Aminotransferase 16 U/L (6-35); Albumin Level 4.7 g/dL (3.5-5.1); Alkaline Phosphatase 65 U/L (38-126); Anion Gap 11 mmol/L (8-16); Aspartate Amino Transferase 24 U/L (14-36); Bilirubin,Total 0.7 mg/dL (0.2-1.3); Blood Urea Nitrogen 21 mg/dL (7-17); Calcium 9.6 mg/dL (8.4-10.2); Carbon Dioxide 23 mmol/L (22-30); Chloride 105 mmol/L (98-107); Estimated Glomerular Filt Rate > 60; Glucose 114 mg/dL (65-110); Sodium 139 mmol/L (137-145)
[2023-07-18 09:08] LABS: Hematocrit 42.5 % (37.0-47.0); Hemoglobin 14.1 g/dL (12.0-15.0); Mean Corpuscular HGB Conc 33.2 g/dl (32-36); Mean Corpuscular Hemoglobin 29.7 pg (26-34); Mean Corpuscular Volume 89.7 fl (80-100); Mean Platelet Volume 9.9 fl (7.4-10.4); Platelet Count Result 345 k/mm3 (150-375); Red Blood Count 4.74 M/mm3 (4.2-5.4); Red Cell Distribution Width 13.6 % (11.5-14.5)
[2023-07-18 09:55] LABS: Folic Acid 3.9 ng/mL (2.76->20)
[2023-07-18 10:11] LABS: Vitamin D 25 Hydroxy 54.3 ng/mL
[2023-07-18 12:28] LABS: Iron 99 ug/dL (37-170); Percent Iron Saturation 30 % (20-50)
[2023-07-21 03:07] LABS: Tissue Transglutaminase IgA Ab 1.3 U/mL (<15.0)
[2023-07-22 22:19] LABS: Vitamin A 66 mcg/dL (38-98)
== END 2023-07-18 07:47 | disposition home or self-care (01) ==
LOC: ANHLAB 07:48
PROVIDERS: PCP Family Medicine; Visit Provider Nurse Practitioner Family
DX: K90.0 Celiac disease (principal); K52.9 Noninfective gastroenteritis and colitis, unspecified
CPT/HCPCS: 36415; 80053; 82306; 82607; 82728; 82746; 83540; 83550; 84590; 85027; 86364

== ENCOUNTER 2023-07-27 00:51 | Day surgery (SDC) | payer BC, SELFPAY ==
[2023-07-08 14:41] VITALS: BMI 27.5
--- NOTE | 2023-07-22 09:36 | SUR.PREOP ---
Patient called regarding upcoming procedure. Message left on patient's voicemail regarding preop instructions, appointment times, and procedure prep.
[2023-07-27 09:22] VITALS: BP 125/82; PULSE 74; RESP 18; TEMP 36.8; O2SAT 100
[2023-07-27] MEDS: LACTATED RINGERS 1,000 ML 150 ML IV CONT (09:41)
--- NOTE | 2023-07-27 09:45 | WPDANESEPPF ---
Anes - Initial Pre Proc Eval Procedure: Operation Date: 07/27/23 10:45 Proposed Procedures p Esophagogastroduodenoscopy & Colonoscopy - Kamlesh Youssef MD Date/Time: 07/27/23 09:45 Surgeon: Kamlesh Youssef MD Pre Op Diagnosis: GERD,Celiac disease, Patient Data Age: 37 Gender: F Height: 1.55 m Weight: 64.8 kg Last Vital Signs Temp 98.2 F 07/27/23 09:22 Pulse 74 07/27/23 09:22 Resp 18 07/27/23 09:22 BP 125/82 07/27/23 09:22 Pulse Ox 100 07/27/23 09:22 O2 Del Method Room Air 07/27/23 09:22 Allergies Allergy/AdvReac Type Severity Reaction Status Date / Time amoxicillin AdvReac Mild Nausea Verified 07/27/23 09:22 Home Medications Medication Instructions Recorded Confirmed Type montelukast 10 mg tablet 10 mg PO QHS #90 tabs 04/30/22 07/08/23 Rx omeprazole 40 mg capsule,delayed 40 mg PO DAILY #90 caps 10/01/22 07/08/23 Rx release bupropion HCl 150 mg 24 hr tablet, See Rx Instructions .Route 04/17/23 07/08/23 Rx extended release .COMPLEX #90 tabs fluticasone furoate 200 1 inh inhalation Q24H #60 ea 07/06/23 07/08/23 Rx mcg-vilanterol 25 mcg/dose inhalation powder (Breo Ellipta) Lactobacillus 1 cap PO DAILY 07/08/23 07/08/23 History acidophilus-Bifidobac.animalis 2.5 billion cell capsule (Daily Probiotic) albuterol sulfate 90 mcg/actuation 2 inh inhalation Q4H PRN SOB 07/08/23 07/08/23 History aerosol inhaler (Ventolin HFA) ascorbic acid (vitamin C) 1,000 mg 1 g PO DAILY 07/08/23 07/08/23 History capsule cetirizine 10 mg tablet (Zyrtec) 10 mg PO DAILY 07/08/23 07/08/23 History cholecalciferol (vitamin D3) 25 25 mcg PO DAILY 07/08/23 07/08/23 History mcg (1,000 unit) capsule famotidine 20 mg tablet (Pepcid) 20 mg PO HS 07/08/23 07/08/23 History omega 0-iqp-eeg-fish oil 1,200 mg 1 cap PO DAILY 07/08/23 07/08/23 History (144 mg-216 mg) capsule (Fish Oil) sertraline 50 mg tablet 50 mg PO DAILY 07/08/23 07/08/23 History Patient hx anesthesia problems: none Family hx anesthesia problems: none Results Review: All pre-operative results and documents have been reviewed as part of the pre-operative evaluation. 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 Mild intermittent asthma Nicotine dependence Raynaud disease Unspecified asthma Urticaria Ventral hernia ct 2019 Surgical History Surgical History H/O ventral hernia repair 5.13.20 Repair primary ventral hernia with 6.6 cm Parietex underlay mesh S/P wisdom tooth extraction Family History Family History (Updated 06/17/23 @ 13:04 by LORI Hodgson) Father Family history of blood dyscrasia Hypertension Family history of hypercholesterolemia Family history of cardiovascular disease Family history of coronary artery disease Mother Family history of hypercholesterolemia Lung cancer Sibling No problems noted. Other Cerebrovascular accident Diabetes mellitus Family history of malignant neoplasm Social History Social History (Updated 06/17/23 @ 13:05 by LORI Hodgson) Smoking packs per day: 0.5 Smoking cigarettes per day: 10.0 Years smoked: 20 Smoking pack-years: 10.00 Smoking status: Former smoker Tobacco type: cigarettes Second hand tobacco smoke exposure: Yes Smoking end date: 01/09/21 Alcohol intake: current Drinks per week: 14 Substance use: current Substance use type: marijuana Lack of Tra
--- NOTE | 2023-07-27 10:13 | PM.HPGS ---
History of Present Illness History of Present Illness Consent: Risks, benefits, and alternatives have been discussed and questions answered. Patient agrees to proceed with procedure. Chief complaint: GERD,Celiac disease, Narrative: Corrina Eldridge is a 37 year old female with loose stools and bloating for over 10 years, diagnosed several months ago with celiac disease after abnormal serology (reviewed), she is on gluten free diet- she is trying her best with some improvement. Never had scopes, also gerd on omeprazole and pepcid. Review of Systems Constitutional: Constitutional: Denies headache(s) and Denies weakness Eyes: Eyes: Denies blurry vision ENT: Reports Normal hearing present, Denies headache(s) and Denies neck pain Cardiovascular: Cardiovascular: Denies chest pain and Denies dyspnea Respiratory: Respiratory: Denies dyspnea Gastrointestinal: Gastrointestinal: Reports no additional gastrointestinal complaints Genitourinary: Genitourinary: Denies dysuria Musculoskeletal: Musculoskeletal: Denies neck pain Integumentary/Breasts: Skin/Breast: Denies dry skin Neurologic: Reports Normal hearing present, Denies headache(s) and Denies weakness Psychiatric: Psychiatric: Denies anxiety Endocrine: Endocrine: Denies change in body appearance Hematologic/Lymphatic: Hematologic/Lymphatic: Denies easy bleeding Allergic/Immunologic: Allergic/Immunologic: Denies urticaria PMF Past Medical History Medical History (Updated 06/17/23 @ 13:54 by Mari Negron APN-Joceline) Abnormal Papanicolaou smear of cervix with positive human papilloma virus (HPV) test (~02/16/17) referred to Dr Giordano BMI 27.0-27.9,adult Chronic diarrhea Encounter for other specified surgical aftercare GERD (gastroesophageal reflux disease) Herpes simplex History of asthma Klippel-Feil syndrome congenital , 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 Mild intermittent asthma Nicotine dependence Raynaud disease Unspecified asthma Urticaria Ventral hernia ct 2019 Surgical History Surgical History H/O ventral hernia repair 01.11.20 Repair primary ventral hernia with 6.6 cm Parietex underlay mesh S/P wisdom tooth extraction Family History Family History (Updated 06/17/23 @ 13:04 by LORI Hodgson) Father Family history of blood dyscrasia Hypertension Family history of hypercholesterolemia Family history of cardiovascular disease Family history of coronary artery disease Mother Family history of hypercholesterolemia Lung cancer Sibling No problems noted. Other Cerebrovascular accident Diabetes mellitus Family history of malignant neoplasm Social History Social History (Updated 06/17/23 @ 13:05 by Julia Rasmussen [facility]) Smoking packs per day: 0.5 Smoking cigarettes per day: 10.0 Years smoked: 20 Smoking pack-years: 10.00 Smoking status: Former smoker Tobacco type: cigarettes Second hand tobacco smoke exposure: Yes Smoking end date: 01/09/21 Alcohol intake: current Drinks per week: 14 Substance use: current Substance use type: marijuana Lack of Transportation: No Lack of Food: Never True Current Housing: I Have Housing Concerned About Future Housing: No Difficulty Paying Gas/Electric Bills: No Difficulty Paying for Meds: No Currently Unemployed: No Education: Associate Degree Difficulty w/ Childcare or Family Care: No Living arrangements: with family Occupation/Education: occupation Additional occupation/education comments: hospital cook Gender identity (if verbalized by the patient): Female Sexual Orientation (if Verbalized by the Patient): Straight or Heterosexual Spiritual care concerns: No Meds Home Medications and Allergies Home Medications Medication Instructions Recorded Confirmed Type montelukast 10 mg tablet 10 mg PO QHS #90 ta
--- NOTE | 2023-07-27 10:33 | SUR.OPER ---
EGD ended at 1028. Colonoscopy began at 1033.
[2023-07-27 10:48] VITALS: BP 138/76; PULSE 61; RESP 17; O2SAT 100
[2023-07-27 10:58] VITALS: BP 144/67; PULSE 66; RESP 16; O2SAT 100
[2023-07-27 11:08] VITALS: BP 157/78; PULSE 65; RESP 22; O2SAT 100
== END 2023-07-27 11:12 | disposition home or self-care (01) ==
PROVIDERS: PCP Family Medicine; Visit Provider Internal Medicine Gastroenterology
PROC: 0DJ08ZZ Inspection of Upper Intestinal Tract, Via Natural or Artificial Opening Endoscopic (ICD-10-PCS; CPT 43235; principal; 2023-07-27 10:45)
DX: Z12.11 Encounter for screening for malignant neoplasm of colon (principal); D12.0 Benign neoplasm of cecum; D12.5 Benign neoplasm of sigmoid colon; K90.0 Celiac disease; K52.9 Noninfective gastroenteritis and colitis, unspecified; K21.9 Gastro-esophageal reflux disease without esophagitis; K44.9 Diaphragmatic hernia without obstruction or gangrene; J45.909 Unspecified asthma, uncomplicated; F10.90 Alcohol use, unspecified, uncomplicated; Z87.891 Personal history of nicotine dependence; F12.90 Cannabis use, unspecified, uncomplicated; Z79.51 Long term (current) use of inhaled steroids; Z79.899 Other long term (current) drug therapy
CPT/HCPCS: 43239; 45385; 45380; 88305; J2001; J2704; J7120

== ENCOUNTER 2024-10-07 11:45 | Outpatient (CLI) | payer BC, SELFPAY ==
--- OUTSIDE RECORDS SUMMARY | 2024-10-07 12:09 | XMS_ITS | Referral Summary ---
Author Organization [facility] Address [address] [place] [address] Care Team Providers Care Clerical Assistant Name Role Phone Geraldo Urbina MD Primary Care Provider Source Comments [facility],non-owned Affiliates and Associated Physician Practices is amultiple site organization consisting of ambulatory clinics and hospital sitesin [place], [place], [place] and [place]. This disclosure is being madepursuant to the Care Everywhere program and may not contain all information available regarding this patient. Last updated 18.[employer] [facility] Allergies No known active allergies Medications * Be aware that medications may not be up to date on this document. Alwaysverify current medications with the patient. Medication Sig Dispensed Refills Start Date End Date Status albuterol HFA (PROVENTIL;VENTOLIN; PROAIR) 108 (90 Base) MCG/ACT inhaler Inhale 2 puffs by mouth every 6 hours as needed Active OtherIndications:ora l contraception Reasons: oral contraception Active Social History Tobacco Use Types Packs/Day Years Used Date Smoking Tobacco: Never Assessed Sex and Gender Information Value Date Recorded Sex Assigned at Not on file Gender Identity Not on file Sexual Orientation Not on file Last Filed Vital Signs Vital Sign Reading Time Taken Comments Blood Pressure 190/100 10/12/2019 7:26 PM SHIRT HEMMER Pulse 84 10/12/2019 7:26 PM SHIRT HEMMER Temperature 36.8 C (98.2 F) 10/12/2019 7:26 PM SHIRT HEMMER Respiratory Rate 15 10/12/2019 7:26 PM SHIRT HEMMER Oxygen Saturation 100% 10/12/2019 7:26 PM SHIRT HEMMER Inhaled Oxygen Concentration - - Weight 53.5 kg (118 lb) 10/12/2019 7:26 PM SHIRT HEMMER Height 154.9 cm (5' 1 ) 10/12/2019 7:26 PM SHIRT HEMMER Body Mass Index 22.3 10/12/2019 7:26 PM SHIRT HEMMER Plan of Treatment Not on file Care Teams Clerical Assistant Relationship Specialty Start Date End Date Geraldo Urbina MD [address] [place] [address] PCP - General Family Medicine 10/12/19
--- OUTSIDE RECORDS SUMMARY | 2024-10-07 12:09 | XMS_ITS | Clinical Summary ---
Author Organization [facility] Address [address] [place] [address] Care Team Providers Care Senior Training Specialist Name Role Phone Unavailable Primary Care Provider Unavailabl e Social History Tobacco Use Types Packs/Day Years Used Date Smoking Tobacco: Never Assessed Comments Unknown Sex and Gender Information Value Date Recorded Sex Assigned at Not on file Legal Sex Female 1:33 PM CDT Gender Identity Not on file Sexual Orientation Not on file Plan of Treatment Health Maintenance Due Date Last Done Comments Cervical Cancer Screening Pa p Smear (Age 30 to 64) Every 3 Years 1983 Annual Physical 11/18/1986 Hepatitis C 11/18/2001 DTaP, Tdap and Td Vaccines ( 1 - Tdap) 11/18/2002 Hepatitis B Vaccines (1 of 3 - 19+ 3-dose series) 11/18/2002 Cervical Cancer Screening Pa p with HPV Testing (Age 30 to 64) Every 5 Years 11/18/2013 Cervical Cancer Screening with HPV 11/18/2013 Mammogram Screening 2023 COVID-19 Vaccine ( - 2023-2 5 season) 2024 Influenza Adult (#1) 2024 HPV Vaccines Aged Out No longer eligi ble based on patient's age to complete this topic Meningococcal B Vaccine Aged Out No l onger eligible based on patient's age to complete this topic Meningococcal Vaccine Aged Out No quintin elza eligible based on patient's age to complete this topic Pneumococcal Vaccine: Pediat rics (0 to 5 Years) and At-Risk Patients (6 to 64 Years) Aged Out No longer eligible b ased on patient's age to complete this topic RSV Immunizations Under 20 Months Aged Out No longer eligible based on patient's age to complete this topic
--- OUTSIDE RECORDS SUMMARY | 2024-10-07 12:09 | XMS_ITS | Patient Health Record ---
Author Organization [facility] Address [address] [place] [address] Care Team Providers Care Photo Lab Specialist Name Role Phone Geraldo Urbina Primary Care Provider Lázaro RODRIGUEZ, PAVinicioC, ZANA Unavailable [phone] REASON FOR REFERRAL No Information MEDICATIONS Medication SIG (Take, Route, Frequency, Duration) Notes Start Date End Date Status Kariva 0.15-0.02/0.01 MG (18/01) as directed Orally Active Allergy PRN Active Levalbuterol Tartrate 45 MCG/ACT 1 puff as needed Inhalation every 4 hrs Active Omeprazole 40 MG 1 capsule Orally Onc e a day for 30 day(s) 05/13/2019 Active Ranitidine HCl 150 MG 1 capsule Orally T wice a day for 30 day(s) 05/13/2019 Active Omeprazole 40 MG 1 capsule 30 minutes before morning meal Orally Once a day for 90 days 07/11/2019 Active Pantoprazole Sodium 40 MG 1 tablet Orall y Once a day for 90 days 05/10/2019 Active Ranitidine HCl 300 MG 1 capsule at bedti me Orally Once a day at bedtime for 30 day(s) 05/09/2019 Active Pantoprazole Sodium 40 MG 1 tablet Orall y Once a day for 30 day(s) 05/09/2019 Active SOCIAL HISTORY Tobacco Use: Social History Observation Description Date Details (start date - stop date) Former Smoker NA - NA Sex Assigned At : Social History Observation Description Sex Assigned At Unknown Tobacco Use/Smoking Question Answer Notes Are you a former smoker How long has it been since y ou last smoked? 5-10 years Additional Findings: Tobacco Non-User Ex -moderate cigarette smoker (10-19/day) PROBLEMS Problem Type ICD Code Onset Dates Problem Status W/U Status Risk SNOMED Code Notes Problem Gastro-esophagea l reflux disease without esophagitis (K21.9) Active confirmed Gastro-esophage al reflux disease without esophagitis (959699458) Problem Dysphagia, unspecified (R13.10) Active confirmed Dysphagia (10141914) PLAN OF TREATMENT No Information Insurance Providers Payer Name Payer Address Payer Phone Subscriber Number Group Number Insured Name Patient Relationship to Insured Coverage Start Date Coverage End Date [employer] [address] [place] [address] [id number] Corrina Eldridge Self - patient is the insured MEDICAL (GENERAL) HISTORY Medical History History ICD Code GERD Asthma Raynaud's Hiatal hernia Total situs inversus Klippel-Feil syndrome Surgical History Surgery Date(Month/Year)
--- OUTSIDE RECORDS SUMMARY | 2024-10-07 12:09 | XMS_ITS | Patient Health Summary ---
Author Organization [facility] [id number] Address [address] [place] [address] Care Team Providers Care Sheet Metal Work Furnace Installer Name Role Phone Geraldo Urbina MD Primary Care Provider [phone] Note from [facility],non-owned Affiliates and Associated Physician Practices is amultiple site organization consisting of ambulatory clinics and hospital sitesin [place], [place], [place] and [place]. This disclosure is being madepursuant to the Care Everywhere program and may not contain all information available regarding this patient. Last updated 18.[id number] Allergies No known active allergies Medications * Be aware that medications may not be up to date on this document. Alwaysverify current medications with the patient. * albuterol HFA (PROVENTIL;VENTOLIN;PROAIR) 108 (90 Base) MCG/ACT inhaler Inhale 2 puffs by mouth every 6 hours as needed * Other Reasons: oral contraception Social History Tobacco Use Types Packs/Day Years Used Date Smoking Tobacco: Never Assessed Sex and Gender Information Value Date Recorded Sex Assigned at Not on file Gender Identity Not on file Sexual Orientation Not on file Last Filed Vital Signs Vital Sign Reading Time Taken Comments Blood Pressure 190/100 10/12/2019 7:26 PM STORAGE CENTER MANAGER Pulse 84 10/12/2019 7:26 PM STORAGE CENTER MANAGER Temperature 36.8 C (98.2 F) 10/12/2019 7:26 PM STORAGE CENTER MANAGER Respiratory Rate 15 10/12/2019 7:26 PM STORAGE CENTER MANAGER Oxygen Saturation 100% 10/12/2019 7:26 PM STORAGE CENTER MANAGER Inhaled Oxygen Concentration - - Weight 53.5 kg (118 lb) 10/12/2019 7:26 PM STORAGE CENTER MANAGER Height 154.9 cm (5' 1 ) 10/12/2019 7:26 PM STORAGE CENTER MANAGER Body Mass Index 22.3 10/12/2019 7:26 PM STORAGE CENTER MANAGER Care Teams Sheet Metal Work Furnace Installer Relationship Specialty Start Date End Date Geraldo Urbina MD [address] [place] [address] PCP - General Family Medicine 10/12/19
--- OUTSIDE RECORDS SUMMARY | 2024-10-07 12:09 | XMS_ITS | Clinical Summary ---
Author Organization [facility] [employer] Address [address] [place] [address] Care Team Providers Care Blocklayer Name Role Phone Geraldo Urbina MD Primary Care Provider Source Comments [facility] [employer],non-owned Affiliates and Associated Physician Practices is amultiple site organization consisting of ambulatory clinics and hospital sitesin [place], [place], [place] and [place]. This disclosure is being madepursuant to the Care Everywhere program and may not contain all information available regarding this patient. Last updated 18.[employer] Allergies No known active allergies Medications * [...] Comments Blood Pressure 190/100 10/12/2019 7:26 PM AUTHOR Pulse 84 10/12/2019 7:26 PM AUTHOR Temperature 36.8 C (98.2 F) 10/12/2019 7:26 PM AUTHOR Respiratory Rate 15 10/12/2019 7:26 PM AUTHOR Oxygen Saturation 100% 10/12/2019 7:26 PM AUTHOR Inhaled Oxygen Concentration - - Weight 53.5 kg (118 lb) 10/12/2019 7:26 PM AUTHOR Height 154.9 cm (5' 1 ) 10/12/2019 7:26 PM AUTHOR Body Mass Index 22.3 10/12/2019 7:26 PM AUTHOR Plan of Treatment Health Maintenance Due Date Last Done Comments LIPID TESTING 1983 MAMMOGRAM 1983 PAP SMEAR 1983 HIV SCREENING 11/18/1998 HEPATITIS C SCREENING 11/14/2001 DTAP/TDAP/TD VACCINES (1 - Tdap) 11/18/2002 HEPATITIS B VACCINE (1 of 3 - 19+ 3-dose series) 11/18/2002 COVID-19 VACCINE (1 - 2023-2 5 season) 2024 INFLUENZA VACCINE (#1) 2024 DEPRESSION SCREENING 08/31/2024 ZOSTER VACCINE (1 of 2) 11/18/2033 HIB VACCINE Aged Out No longer eligi ble based on patient's age to complete this topic HPV VACCINE Aged Out No longer eligi ble based on patient's age to complete this topic MENINGOCOCCAL (Group B) VACCINE Aged Out No longer eligible based on patient's age to complete this topic MENINGOCOCCAL VACCINE Aged Out No quintin elza eligible based on patient's age to complete this topic PNEUMOCOCCAL VACCINE Aged Out No long er eligible based on patient's age to complete this topic Care Teams Blocklayer Relationship Specialty Start Date End Date Geraldo Urbina MD [address] [place] [place] [address] PCP - General Family Medicine 10/12/19
[2024-10-07 13:56] LABS: Basophils Absolute Auto 0.1 K/mm3 (0.0-0.1); Basophils Percent Auto 0.9 % (0.2-1.2); Eosinophils Absolute Auto 0.4 K/mm3 (0-0.3); Hematocrit 42.6 % (37.0-47.0); Hemoglobin 13.6 g/dL (12.0-15.0); Immature Granulocyte Absolute 0.02 K/mm3 (0.00-0.031); Immature Granulocyte Percent A 0.2 % (0-0.5); Lymphocytes Absolute Auto 4.27 K/mm3 (0.9-3.2); Mean Corpuscular HGB Conc 31.9 g/dl (32-36); Mean Corpuscular Volume 93.8 fl (80-100); Mean Platelet Volume 11.3 fl (7.4-10.4); Monocytes Absolute Auto 0.9 K/mm3 (0.1-0.6); Monocytes Percent Auto 7.9 % (2.6-8.5); Neutrophils Absolute Auto 5.3 K/mm3 (1.3-6.7); Platelet Count Result 294 k/mm3 (150-375); Red Blood Count 4.54 M/mm3 (4.2-5.4); Red Cell Distribution Width 13.4 % (11.5-14.5); White Blood Count 10.9 K/mm3 (4.5-10.0)
[2024-10-07 14:44] LABS: Alanine Aminotransferase 23 U/L (6-35); Albumin Level 4.5 g/dL (3.5-5.1); Alkaline Phosphatase 75 U/L (38-126); Anion Gap 11 mmol/L (4-12); Aspartate Amino Transferase 48 U/L (14-36); Bilirubin,Total 0.5 mg/dL (0.2-1.3); Blood Urea Nitrogen 27 mg/dL (7-17); Calcium 9.5 mg/dL (8.4-10.2); Carbon Dioxide 25 mmol/L (22-30); Chloride 103 mmol/L (98-107); Cholesterol 191 mg/dL (0-200); Estimated Glomerular Filt Rate 52; Glucose 72 mg/dL (65-110); HDL Direct 74 mg/dL; Potassium 4.7 mmol/L (3.4-5.0); Sodium 139 mmol/L (137-145); Triglycerides 115 mg/dL (<150)
[2024-10-07 14:55] LABS: LDL Cholesterol Direct 107 mg/dL
[2024-10-07 15:31] LABS: Vitamin D 25 Hydroxy 38.3 ng/mL
[2024-10-07 18:03] LABS: Hepatitis C Virus Antibody Negative (Negative)
== END 2024-10-07 11:46 | disposition home or self-care (01) ==
PROVIDERS: PCP Family Medicine; Visit Provider Family Medicine
DX: Z00.00 Encounter for general adult medical examination without abnormal findings (principal); N18.31 Chronic kidney disease, stage 3a; M34.1 CR(E)ST syndrome; N25.81 Secondary hyperparathyroidism of renal origin; K90.0 Celiac disease
CPT/HCPCS: 36415; 80053; 80061; 82306; 82607; 82728; 85025; 86803